=== PATIENT | male | born 1990 | race Caucasian/White ===

== ENCOUNTER 2018-10-05 09:34 | Outpatient (CLI) | payer OTHER ==
--- NOTE | 2018-10-05 10:24 | CONSULTATION NOTE ---
Information from patient questionnaire entered by Cathleen Rios. I have reviewed and concur with the information entered by Cathleen Rios. This document represents the service I personally performed and the decisions made by me, Ollie Li MD, [facility]. - History of Present Illness Chief Complaint: Unrefreshed sleep, Snoring, Excessive daytime sleepiness, Observed pauses in breathing, Fatigue The patient tells me that he normally goes to bed around 12:00 am, and it takes him approximately 30 minutes to fall asleep. He has been told that he snores loudly and irregularly at night. He has been observed to stop breathing in his sleep. He now sleeps alone. He can recall waking up on the average of 2 times during the night. Most of the time he wakes up because of having to use the restroom. He has occasionally awakened for his own snoring and choking. There is a lot of tossing and turning in his sleep. Generally there is no recollection of dreams. There is no somniloquy (sleep talking) or somnambulism (sleep walking). He usually wakes up at 6:30am and does not feel refreshed. He usually does not have a morning headache. During the day he complains of feeling sleepy and fatigued. He has never fallen asleep while driving nor has any accident due to sleepiness but has fallen asleep at work. He usually naps during the day. If he naps, upon falling asleep during the day he denies having vivid dreams. He has never experienced sleep paralysis, cataplexy, or symptoms of restless leg syndrome. He denies having impaired concentration during the day. [place] Sleepiness Scale Score: 10 - Allergies/Home Medications Allergies and home medications reviewed: Yes - Social History The patient's occupation is a [employer]. Patient is Single and lives in . Smoked in the past 12 months: Yes Cigarettes per day (20/pack): 10 Years of smokin Smoking Pack Years: 3.0 Alcohol use: Yes Amount and frequency: 1-2 drinks/week Caffeine use: Yes Amount and frequency: 1 drink/day - Family History Family history of sleep disordered breathing: No (adopted) - Review of Systems Weight gain over past 5 years: 40 Cardiovascular: denies: high blood pressure, palpitations, chest pain, irregular heart rate or pulse, leg or foot swelling, have to sleep sitting up, other: Respiratory: denies: shortness of breath, wheeze, sputum production, chronic cough, other: Gastrointestinal: denies: heartburn, difficulty swallowing, nausea, vomitting, diarrhea, abdominal pain, other: Urinary: denies: incontinence, frequency, urgency, impotence, other: Neurological: denies: headaches, seizure, head trauma, disorientation, speech dysfunction, gait or balance problems, fainting or unconsciousness, other: Psychiatric: denies: Attention Deficit Hyperactivity, anxiety, depression, mood disorder, claustrophobia, other: Ear/Nose/Throat: reports: nasal congestion, injury to nose Endocrine: denies: thyroid disease, history of goiter, sluggishness, too hot or cold, excessive thirst, increased appetite, increased urination, unexplained weakness, other: Musculoskeletal: denies: joint pain, neck pain, back pain, joint swelling, muscle pain or cramping, mobility problems, other: - Physical Examination Vital signs obtained and documented by: Dr. Li Blood Pressure: 120/70 Cuff size: regular HEENT: No craniofacial malformation Nostrils: patent to airflow Turbinates: normal Septum: midline Mouth and throat: narrow oropharynx (Mallampati Class II) Soft palate: long Hard palate: normal Uvula: normal Tongue: normal in size Tonsils: 1+ Chin and jaw: normal size and position Neck: normal w/o lymphadenopathy or thyromegaly Heart: regular rate and rhythm Lungs: clear bilaterally Abdomen: soft, non-tender Extremities: no edema or clubbing Neurologic: intact, no focal deficits - Impression 1. [Suspected] [Obstructive][Central][Mixed][Complex] Sleep Apnea-Hypopnea Syndrome, as [previously diagnosed.][suggested by a history of ][loud and irregular snoring, ][observed cessation of breath while asleep, ][gasping or choking in sleep, ][morning headache, ][frequent awakening during the night, ][unrefreshed sleep, ][cognitive impairment, ][and excessive daytime sleepiness. ] Narrow oropharynx and obesity are common predisposing factors for obstructive sleep apnea-hypopnea syndrome. I recommend proceeding to polysomnography to confirm the diagnosis and to assess severity. If the patient has significant sleep disordered breathing, a manual CPAP titration study will also be performed to find the optimal treatment pressure. I informed the patient of what the sleep studies involve and after some discussion, obtained agreement to proceed. The pathophysiology of obstructive sleep apnea-hypopnea syndrome was discussed with the patient and health risks of cardiovascular and cerebrovascular disease if not treated. [[facility] brochure for obstructive sleep apnea-hypopnea syndrome given and reviewed.] Risks of drowsy driving discussed in detail and patient advised to avoid long distance driving and to tie puller at the first sign of drowsiness. Patient agreed to plan. [[facility] drowsy driving brochure given.] - Plan Schedule polysomnography +- manual CPAP titration study and return in 1-2 weeks after the study to discuss result and initiate therapy. Avoid long distance driving or driving when feeling sleepy. Avoid alcohol, sedative and muscle relaxant around bedtime. Attempt to lose weight. Review instructions provided by trained office staff on how to prepare for the sleep study. [ Complete a 2 week sleep diary and return to office.] Return for follow-up after sleep study completed. I spent 100% of this [] minute visit face to face with the patient with greater than 50% of this was spent time counseling the patient and coordination of care.
[2018-10-05 10:25] VITALS: BP 120/70
== END 2018-10-05 09:35 | disposition home or self-care (01) ==
LOC: SC 09:34
PROVIDERS: ATTEND Internal Medicine Pulmonary Disease
DX: R06.83 Snoring (principal); R06.81 Apnea, not elsewhere classified; G47.8 Other sleep disorders; G47.10 Hypersomnia, unspecified
CPT/HCPCS: 99203; 99212

== ENCOUNTER 2018-11-18 20:54 | Outpatient (CLI) | payer OTHER | END 2018-11-18 20:55 | disposition home or self-care (01) | LOC: SC 20:54 | PROVIDERS: ATTEND Internal Medicine Pulmonary Disease | DX: G47.33 Obstructive sleep apnea (adult) (pediatric) (principal) | CPT/HCPCS: 95810 ==

== ENCOUNTER 2018-11-29 09:11 | Outpatient (CLI) | payer OTHER ==
--- NOTE | 2018-11-29 09:59 | SLEEP CARE CONSULTATION ---
Information from patient questionnaire entered by Cathleen Rios. I have reviewed and concur with the information entered by Cathleen Rios. This document represents the service I personally performed and the decisions made by me, Ollie Li MD, [facility]. History of Present Illness Initial [place] Sleepiness Scale score: 10 Current [place] Sleepiness Scale score: 15 Additional HPI information: HPI: Mr. Conner returned for follow up of the sleep study he had on 11/18/18. The polysomnography showed that the patient had normal sleep efficiency. Despite moderate sleep fragmentation, the sleep architecture was normal. Respiratory monitoring showed moderate obstructive sleep apnea-hypopnea (AHI = 26.6) associated with frequent arousals, oxyhemoglobin desaturation and mild hypoxia (julia oxygen saturation of 86%). The respiratory events occurred mainly during supine sleep (supine AHI = 42.0; non-supine = 17.63). Snore was very loud in intensity. There was no significant periodic leg movement of sleep. Cardiac rhythm was normal sinus rhythm without significant arrhythmia. No abnormal behavior (parasomnia) observed during the night. The patient was informed of these findings. I explained to him the pathophysiology behind obstructive sleep apnea. We then spent quite a bit of time discussing different treatment options. For mild obstructive sleep apnea, surgery and oral appliance are alternatives to nasal CPAP therapy but in moderate or severe cases, nasal CPAP is the most effective and reliable treatment. Weight loss in an obese individual is strongly recommended. After some discussion, he opted to go with the nasal CPAP therapy. I explained to him how CPAP machine works and what to expect when using the machine. PE: No significant change on the physical exam today. His weight is 246 lbs (up 6 lbs). Tonsils are moderately enlarged bilaterally. Allergies and Home Medications Drug allergies reviewed: Yes Home medication list reviewed: Yes Review of Systems Review of systems same as previous: Yes Physical Exam Weight (kg): 246 lb Weight change since last visit: 6 Impression and Plan IMPRESSION: 1. Obstructive Sleep Apnea-Hypopnea Syndrome, moderate, associated with mild hypoxemia and sleep fragmentation. Most likely, this is the cause of the patients symptoms of unrefreshed sleep, and excessive daytime sleepiness. As mentioned above, the patient will return for a manual CPAP/BiPAP titration study. Because he has moderately enlarged tonsils, tonsillectomy is another treatment option. PLAN: 1. Schedule a manual CPAP/BiPAP titration study. 2. Attempt to lose weight and avoid alcohol consumption near bedtime. 3. The patient is again cautioned about driving until his sleepiness completely resolves on the CPAP therapy. 4. Consider ENT referral. 5. Return for follow up after the sleep study. I spent 100% of the 15 minute visit [id number] with the patient with greater than 50% of this was spent time counseling the patient and coordination of care.
== END 2018-11-29 09:12 | disposition home or self-care (01) ==
LOC: SC 09:11
PROVIDERS: ATTEND Internal Medicine Pulmonary Disease
DX: G47.33 Obstructive sleep apnea (adult) (pediatric) (principal)
CPT/HCPCS: 99212; 99213

== ENCOUNTER 2019-01-04 19:20 | Outpatient (CLI) | payer OTHER | END 2019-01-04 19:21 | disposition home or self-care (01) | LOC: SC 19:20 | PROVIDERS: ATTEND Internal Medicine Pulmonary Disease | DX: G47.33 Obstructive sleep apnea (adult) (pediatric) (principal) | CPT/HCPCS: 95811 ==

== ENCOUNTER 2019-01-13 09:03 | Outpatient (CLI) | payer OTHER ==
[2019-01-13 10:22] VITALS: BP 110/70
--- NOTE | 2019-01-13 10:22 | SLEEP CARE CONSULTATION ---
Information from patient questionnaire entered by Lynda Fabian. I have reviewed and concur with the information entered by Lynda Fabian. This document represents the service I personally performed and the decisions made by me, Leticia Sofia, RN, MSN, [employer]. History of Present Illness Initial [place] Sleepiness Scale score: 10 Current [place] Sleepiness Scale score: 16 Additional HPI information: VICKI DICKEY returns for follow up of the recently performed manual titration polysomnography and informed of findings. I explained the pathophysiology behind obstructive sleep apnea. I reviewed the impact of weight changes on sleep apnea and strongly recommended losing weight. He has started to lose weight. After some discussion, the patient opted to continue with plan of nasal CPAP therapy treatment. He felt much more rested after titration study and would like to start right away. Nasal CPAP set at [id number] will be ordered as noted on manual titration study. I explained how CPAP machine works with sample devices Respironics Dreamstation and ResMed [id number] and what to expect when using the machine. Using CPAP every night in order to get used to it was emphasized. Patient advised to put CPAP mask on before getting into bed so as not to fall asleep without CPAP. To assist acclimation to CPAP use, it could also be used for a short time during day while reading or watching TV. The patient was instructed to call the CPAP supplier to discuss any mechanical problem that may occur. If the mask given is uncomfortable or is difficult to keep on through the night even with adjustment, contact the CPAP supplier as many will replace with another mask style if notified before 30 days. If snoring or perceives is not getting enough air or too much air from the machine, notify this office. AAS patient education PAP tips reviewed and given to patient. He prefers the Dreamstation. Patient counseled not drink alcohol less than 4 hours before bedtime as it can increase snoring and apnea. Patient was cautioned about risks of drowsy driving until sleepiness symptoms resolve. Patient denies drowsy driving. Sleep Study - Polysomnography Polysomnography findings: The quality of the study is good. CPAP was initiated at 4 cmH2O and titrated up to CPAP at 11 cmH2O. CPAP at 11 cmH2O appeared to be optimal (AHI of 4 per hour on the pressure). There was supine REM sleep on the pressure. Oxygen saturation wasnt.. Lower CPAP settings allowed more frequent residual respiratory events. The patient appeared to have tolerated positive airway pressure therapy very well. The patients sleep efficiency was normal. The sleep architecture was normal as well. There was no significant periodic leg movement of sleep. Cardiac rhythm was normal sinus rhythm without significant arrhythmia. No abnormal behavior (parasomnia) observed during the night. Allergies and Home Medications Known drug allergies: Yes Home medication list reviewed: No (no meds) Review of Systems Review of systems same as previous: No (nasal congestion recently ) Physical Exam Blood Pressure: 110/70 Cuff size: long Heart Rate: 81 O2 Saturation: 97 Height: 5 ft 9 in Weight: 236 lb Body Mass Index: 34.8 BMI Classification: Obesity Class 1 Impression and Plan 1. Obstructive Sleep Apnea-Hypopnea Syndrome, moderate, adequately controlled with CPAP set at [id number]. Obviously this is the cause of the patients symptoms of unrefreshed sleep, and excessive daytime sleepiness as patient felt much more rested after titration study. As mentioned above, the patient will be started on nasal autoCPAP therapy with pressure set at 11 cmH2O. Compliance guidelines also reviewed. A copy of compliance guidelines will be given for reference at check out. Because the apnea is more severe supine, I instructed to avoid sleeping supine using pillow positioning until able to start CPAP use. For his nasal congestion, he can use the saline nasal spray prior to CPAP to clear nose of secretions to facilitate nasal breathing. He can also increase the humidity on his CPAP to reduce nasal congestion. I explained how he will be taught how to adjust at set up of his CPAP. There was an incomplete sentence on report about the oxygen saturation that I will have Dr. Li review and revise as indicated. * Nasal auto CPAP therapy, pressure at 11 cm H2O. * Attempt to lose weight. * Avoid alcohol consumption near bedtime. * Avoid supine sleep until using CPAP. * Dr. Lopes to review report and revise incomplete sentence as indicated. * The patient is again cautioned about driving until sleepiness completely resolves. * Return one month after CPAP obtained. I will assess response to therapy and compliance at that time. I spent 100% of this 27 minute visit face to face with the patient with greater than 50% of this was spent time counseling the patient and coordination of care.
== END 2019-01-13 09:04 | disposition home or self-care (01) ==
LOC: SC 09:03
PROVIDERS: ATTEND Nurse Practitioner Family
DX: G47.33 Obstructive sleep apnea (adult) (pediatric) (principal); E66.9 Obesity, unspecified; Z68.34 Body mass index [BMI] 34.0-34.9, adult
CPT/HCPCS: 99212; 99214

== ENCOUNTER 2019-04-20 10:14 | Outpatient (CLI) | payer OTHER ==
[2019-04-20 11:04] VITALS: BP 110/74
--- NOTE | 2019-04-20 11:04 | SLEEP CARE CONSULTATION ---
Information from patient questionnaire entered by Lynda Fabian. I have reviewed and concur with the information entered by Lynda Fabian. This document represents the service I personally performed and the decisions made by me, Leticia Sofia, RN, MSN, [employer]. History of Present Illness Previous diagnosis: Moderate, Obstructive Sleep Apnea-Hypopnea Syndrome AHI: 26.6 Reason for follow up: first compliance Equipment type: CPAP Equipment obtained from: [employer] Mask style: Nasal (Wisp) Mask brand: Respironics Backup mask available: Yes (Dreamwear from sleep study) Last cushion change: none since set up CPAP Compliance Data - Data Reviewed with Patient Average duration of nightly device use: 3.5 Compliance rate %: 16.7 (60 days ) Current pressure setting (cmH2O): 11 Humidity settin Heated hose settin Average residual AHI: 6.4 Average large leak: 0 Subjective Patient concerns: reports: nasal congestion (most days -uses saline nasal spray prior to CPAP. ), dry mouth, nose, throat. denies: aerophagia, mask discomfort, air blowing in eyes, mask leak noise, condensation in mask/hose, epistaxis Observed to snore while using device: No Current pressure setting perceived as: too high On therapy, patient: reports: sleeping better (until pressure too high ), awakening more refreshed, more rested overall. denies: drowsiness while driving Initial [place] Sleepiness Scale score: 10 Current [place] Sleepiness Scale score: 8 Allergies and Home Medications Home medication list reviewed: Yes (none) Allergy and home medication list: Multivitamins daily Fish oil daily Review of Systems Review of systems same as previous: No (Flu ) Physical Exam Blood Pressure: 110/74 Cuff size: long Heart Rate: 83 O2 Saturation: 98 Height: 5 ft 9 in Weight: 245 lb (fatigues and boots ) Weight change since last visit: gained 9 pounds Body Mass Index: 36.1 BMI Classification: Obese Impression and Plan 1. Obstructive Sleep Apnea-Hypopnea Syndrome, moderate, with poor treatment compliance and slightly elevated residual AHI . On CPAP therapy, the patient has better sleep quality, more refreshed and is more rested overall. For pressure comfort, I will change his CPAP to autoCPAP at 7-9cmH20. He is advised to use the ramp still and to contact me if the pressure change is insufficient and not enough. This should reduce him pulling mask in sleep as well reducing oral venting. If continued oral venting , chinstrap fitting is advised. Oral dryness adnd nasal congestion can be reduced by adjusting humidity setting higher or heated hose lower or by adjusting both settings. Printed instructions given on how to change humidity and heated hose settings with rationale explaining why to change. Oral dryness can also be reduced by reducing oral venting. Patient advised that chronic oral dryness can affect dental health and advised to follow up with dentist. In addition, there are oral dryness products that can be used to reduce dryness such as Biotene products, Dry mouth rinse and Xylomelts. Patient to discuss best option with dentist. Nasal congestion can also be reduced by use of saline nasal spray sample given to use prior to CPAP to clear nasal secretions and wash off any nasal allergens to facilitate nasal breathing. In addition, a steamy shower before bed will often assist nasal drainage. In addition, he can try an antihistamine at night before bed to see if beneficial. If no symptom reduction, he is to follow up with PCP further evaluation. He may benefit from an ENT evaluation. Patient's apnea severity and rationale for treatment to reduce apnea, improve sleep quality and reduce cardiovascular and cerebrovascular events was reviewed. Compliance guidelines reviewed. Patient advised to use CPAP with all sleep. Since patient has more severe apnea in supine position, patient advised to avoid supine sleep with pillow positioning if unable to use CPAP while ill or if without electricity to reduce apnea risk. * Change CPAP pressure to 7-9 cmH2O * Implement methods to reduce oral dryness and nasal congestion. * Use CPAP with all sleep. * Notify me if snoring with mask or feeling that the pressure is too much or too little * Attempt to lose weight * Call this office if any problems using CPAP * Return for follow up in 1-2 months , or sooner if concerns arise Time Spent with Patient (minutes): 30 I spent 100% of this visit face to face with the patient with greater than 50% of this was spent time counseling the patient and coordination of care.
== END 2019-04-20 10:15 | disposition home or self-care (01) ==
LOC: SC 10:14
PROVIDERS: ATTEND Nurse Practitioner Family
DX: G47.33 Obstructive sleep apnea (adult) (pediatric) (principal); E66.9 Obesity, unspecified; Z68.36 Body mass index [BMI] 36.0-36.9, adult
CPT/HCPCS: 99212; 99215

== ENCOUNTER 2019-06-21 17:05 | Outpatient (CLI) | payer OTHER ==
--- NOTE | 2019-06-21 14:56 | SLEEP CARE CONSULTATION ---
Information from patient questionnaire entered by Cathleen Rios. I have reviewed and concur with the information entered by Cathleen Rios. This document represents the service I personally performed and the decisions made by me, Ollie Li MD, [facility]. History of Present Illness Service Date and Time: 06/21/2019 1440 Previous diagnosis: Moderate, Obstructive Sleep Apnea-Hypopnea Syndrome AHI: 26.6 Reason for follow up: other (2 month with pressure change) Equipment type: CPAP Equipment obtained from: [facility] additional information: To minimize the risk of COVID-19 exposure, the patient has requested and consented to this video telemedicine visit. The patient also agrees to having his insurance billed. HPI: Mr. Conner was called today to follow up on the nasal CPAP therapy. He was diagnosed to have moderate obstructive sleep apnea-hypopnea syndrome. The patient wears a Respironics DreamWisp nasal mask. He reports using the device nightly and all through the night. The compliance report shows usage in 26 nights out of the past 60 nights, averaging 4.6 hours a night. The > 4 hour compliance rate for the past 60 days is 25%. He said he usage was low because he went back home to [place] and forgot to bring his CPAP. He complained of no particular problem with the device such as soreness on the face, dry nose, epistaxis, nasal congestion or headache. He thinks that the pressure of 7 9 cmH2O is comfortable. On the CPAP therapy he notices improvement in his sleep quality, and that he wakes up feeling fresher in the morning and more awake/alert during the day. His notices no snore at all. The average residual AHI is 6.0; and average time in large leak per day is 14 seconds. The 90th percentile pressure is 8.9 cmH2O. CPAP Compliance Data - Data Reviewed with Patient Average duration of nightly device use: 1h 52m Compliance rate %: 23.3 Current pressure setting (cmH2O): 7-9 Humidity settin Heated hose settin Average residual AHI: 6.4 Average large leak: 12s Subjective Initial [place] Sleepiness Scale score: 10 Allergies and Home Medications Drug allergies reviewed: Yes Home medication list reviewed: Yes Review of Systems Review of systems same as previous: Yes Physical Exam Height: 5 ft 9 in Impression and Plan IMPRESSION: 1. Obstructive Sleep Apnea-Hypopnea Syndrome, moderate (AHI was 26.6), with the patient doing well on nasal CPAP therapy. He has [id number] compliance but significant clinical improvement. The current pressure appears comfortable but not quite effective. His mask fits well. Overall, he is very satisfied with treatment and plans to continue with it long-term. Because the residual AHI is still slightly high, I will raise the pressure range. PLAN: 1. AutoCPAP increased to 7 - 12 cmH2O via the modem, done. 2. Try to lose weight 3. Follow up with a sleep physician in [place] where he will be relocating to next month. Visit Type: Telehealth Video Video Type: CAD Crowd Location of Provider: Home Patient agrees and consents to this telehealth visit type: Yes Time Spent with Patient (minutes): 15 Provider Statement: I spent 100% of the Telehealth Video Call with the patient with greater than 50% spent counseling the patient and coordination of care.
== END 2019-06-21 17:06 | disposition home or self-care (01) ==
LOC: SC 17:05
PROVIDERS: ATTEND Internal Medicine Pulmonary Disease
DX: G47.33 Obstructive sleep apnea (adult) (pediatric) (principal)
CPT/HCPCS: 99212; 99213